=== PATIENT | male | born 1980 | race Caucasian/White ===

== ENCOUNTER 2016-12-14 09:23 | Emergency (ER) | payer BC ==
[~2016-12-14 09:23] MED LIST: ALPRAZOLAM0.5 MG PO; HYDROCHLOROTH12.5 MG PO; LEXAPRO20 MG PO; LISINOPRIL20 MG PO; METOPROLOL SUCC50 MG PO; NEXIUM40 MG PO; PERCOCET 7.5-31 EACH PO
[2016-12-14 10:42] LABS: HEMOGLOBIN 15.9 gm/dl (14.0-17.5); RED BLOOD COUNT 5.23 M/UL (4.20-5.50); WHITE BLOOD COUNT 7.8 K/UL (4.5-11.0)
[2016-12-14 11:09] LABS: BUN/CREATININE RATIO 15 (0-10)
== END 2016-12-14 13:25 | disposition home or self-care (01) ==
LOC: ER1 09:23
PROVIDERS: Physician Assistant
DX: R07.89 Other chest pain (principal); R73.9 Hyperglycemia, unspecified; I10 Essential (primary) hypertension; K21.9 Gastro-esophageal reflux disease without esophagitis; F41.9 Anxiety disorder, unspecified; F17.200 Nicotine dependence, unspecified, uncomplicated; Z88.5 Allergy status to narcotic agent; Z88.6 Allergy status to analgesic agent; Z79.899 Other long term (current) drug therapy
CPT/HCPCS: 36415; 71020; 80053; 82550; 82553; 83874; 84443; 84484; 85025; 85379; 93005; 99285

== ENCOUNTER 2016-12-18 08:00 | Emergency (ER) | payer BC ==
[2016-12-18 09:26] LABS: HEMOGLOBIN 16.4 gm/dl (14.0-17.5); RED BLOOD COUNT 5.43 M/UL (4.20-5.50); WHITE BLOOD COUNT 9.1 K/UL (4.5-11.0)
[2016-12-18 10:12] LABS: BUN/CREATININE RATIO 12 (0-10)
== END 2016-12-18 14:10 | disposition home or self-care (01) ==
LOC: ER1 08:00
PROVIDERS: Student in an Organized Health Care Education/Training Program
DX: R07.89 Other chest pain (principal); R11.0 Nausea; I10 Essential (primary) hypertension; E11.9 Type 2 diabetes mellitus without complications; F17.210 Nicotine dependence, cigarettes, uncomplicated; Z88.5 Allergy status to narcotic agent; Z90.49 Acquired absence of other specified parts of digestive tract
CPT/HCPCS: 36415; 71010; 80053; 82550; 82553; 83690; 83874; 84484; 85025; 93005; 99285

== ENCOUNTER → 2016-12-27 | Outpatient (CLI) | payer BC | LOC: HEART CORB 12:02 | DX: R07.2 Precordial pain (principal); I10 Essential (primary) hypertension | CPT/HCPCS: 93306 ==

== ENCOUNTER 2017-01-22 23:27 | Emergency (ER) | payer BC | END 2017-01-23 00:05 | disposition left against medical advice (07) | LOC: ER1 23:27 | DX: Z53.21 Procedure and treatment not carried out due to patient leaving prior to being seen by health care provider (principal) | CPT/HCPCS: 87081; 87880 ==

== ENCOUNTER → 2021-12-04 | Outpatient (CLI) | payer OTHER | LOC: SLEEP-COR 09:51 | DX: G47.33 Obstructive sleep apnea (adult) (pediatric) (principal); G47.61 Periodic limb movement disorder | CPT/HCPCS: 95810 ==